=== PATIENT | female | born 1960 | race Two or more races ===

== ENCOUNTER 2023-02-13 14:01 | Emergency (ER) | payer SELFPAY ==
[~2023-02-13] VITALS: Ht 157.5 cm; Wt 68.2 kg
[2023-02-13 14:16] VITALS: RESP 16; TEMP 98.2; O2SAT 98
[2023-02-13] MEDS ORDERED: ACETAMINOPHEN 500 MG TAB PO ONE (16:15)
[2023-02-13 17:00] VITALS: BP 132/67
[2023-02-13 18:48] VITALS: PULSE 87
== END 2023-02-13 18:04 | disposition home or self-care (01) ==
LOC: ER 14:01
DX: M25.511 Pain in right shoulder (principal); M25.512 Pain in left shoulder; H92.01 Otalgia, right ear; R07.89 Other chest pain
CPT/HCPCS: 73030; 93005